=== PATIENT | male | born 1990 | race African-American/Black ===

== ENCOUNTER → 2017-12-09 | Outpatient (CLI) | payer OTHER ==
[~2017-12-09] MED LIST: ACET650S21 PO; TRAM50TA2 PO
== END ==
LOC: RAD 15:05
PROVIDERS: ATTEND Orthopaedic Surgery
DX: S76.112D Strain of left quadriceps muscle, fascia and tendon, subsequent encounter (principal); M94.262 Chondromalacia, left knee; M25.462 Effusion, left knee; X58.XXXD Exposure to other specified factors, subsequent encounter